=== PATIENT | male | born 1965 | race Caucasian/White ===

== ENCOUNTER 2023-08-22 12:12 | Emergency (ER) | payer BC, SELFPAY ==
[2023-08-22 12:15] VITALS: BP 205/86; PULSE 18; RESP 18; TEMP 37.2; O2SAT 96
[2023-08-22 14:37] VITALS: BP 167/85; PULSE 81; TEMP 36.9
--- NOTE | 2023-08-22 14:48 | ED.GENADUL_ITS ---
Discharge Plan Disposition Patient Disposition: Home Condition: Stable Discharge Details Clinical Impression: Abscess of great toe, right Primary Care Provider: Unknown,Unknown ED Provider: Thor Martins Home Meds and New Rx's Prescriptions: New cephalexin 500 mg capsule 500 mg PO QID Qty: 28 0RF Continued glipizide 10 mg tablet 10 mg PO DAILY lisinopril 20 mg tablet 20 mg PO DAILY Patient Comments: Take 1 tablet by mouth once a day for high blood pressure metformin 500 mg tablet extended release 24hr 1,000 mg PO DAILY aspirin 81 mg capsule 81 mg PO DAILY Januvia 100 mg tablet 100 mg PO DAILY Discharge Instructions Instructions: Abscess Follow-up (ED) Additional Instructions: Take full course of antibiotic as prescribed. Please contact your primary care physician to arrange follow-up. Please follow-up with podiatry next week. Call first thing on Friday. Return to the ER immediately for any worsening or new concerning symptoms. Referrals: [facility] [Provider Group] HPI General Mode of arrival: ambulatory . Date/Time Provider Initiated Documentation: 08/22/23 13:28 . Limitations to Documentation: no limitations . Information obtained by: patient . HPI Narrative: 58-year-old male with xob-iwrmjhy-jmqixpyfk diabetes here with right great toe infection. Patient notes he first noticed inflammation in the area about a week ago. Swelling and inflammation worsened. His daughter who is a nurse assisted him in draining purulent fluid from the area this morning. His daughter is concerned for extension deeper and potentially into bone. No associated fever. Swelling is significantly improved after drainage. Patient notes he has been compliant with his diabetic meds. Related Data Home Medications Medication Instructions Recorded Confirmed aspirin 81 mg capsule 81 mg PO DAILY 08/22/23 08/22/23 cephalexin 500 mg capsule 500 mg PO QID #28 caps 08/22/23 glipizide 10 mg tablet 10 mg PO DAILY 08/22/23 08/22/23 lisinopril 20 mg tablet 20 mg PO DAILY 08/22/23 08/22/23 metformin 500 mg tablet,extended 1,000 mg PO DAILY 08/22/23 08/22/23 release 24hr (osmotic) sitagliptin phosphate 100 mg 100 mg PO DAILY 08/22/23 08/22/23 tablet (Januvia) Previous Rx's Medication Instructions Recorded cephalexin 500 mg capsule 500 mg PO QID #28 caps 08/22/23 Allergies Allergy/AdvReac Type Severity Reaction Status Date / Time Penicillins Allergy Skin Rash Unverified 08/22/23 15:46 General Stated Complaint: Cellulitis CASSIDY: 3 Review of Systems Constitutional Constitutional: Denies fever(s) Integumentary/Breasts Skin/Breast: Reports as per HPI Exam Const General: cooperative and no acute distress Resp Auscultation: clear to auscultation bilaterally, no rales, no rhonchi and no wheezes Cardio Jugular venous pressure: no JVD Rate: regular rate and not tachycardic Rhythm: regular rhythm Skin Other: 2 x 3 cm drained abscess base of right great toe plantar surface, mild immediately surrounding erythema with no extension of this erythema proximally, no fluctuance, central area does seem depressed with overlying skin Extrem General: no edema Right lower extremity: foot (Base of right great toe inflammation as noted above, no swelling, 2+ DP) Course Vital Signs Vital signs: Vital Signs Temperature 37.2 C 08/22/23 12:15 Pulse 18 L 08/22/23 12:15 Respiratory Rate 18 08/22/23 12:15 Blood Pressure 205/86 H 08/22/23 12:15 Pulse Oximetry 96 08/22/23 12:15 Temperature 36.9 C 08/22/23 14:37 Temperature Source Temporal Artery Scan 08/22/23 14:37 Pulse 81 08/22/23 14:37 Respiratory Rate 18 08/22/23 12:15 Blood Pressure 167/85 H 08/22/23 14:37 Blood Pressure Position Sitting 08/22/23 12:15 Pulse Oximetry 96 08/22/23 12:15 Oxygen Delivery Method Room Air 08/22/23 14:37 Oxygen Flow Rate 0 08/22/23 14:37 Pain Level 0 08/22/23 14:37 Medical Decision Making 58-year-old male with history of nyc-xoylwdp-kobyywedq diabetes, here with abscess base of his right great toe that has been drained since this morning. Concern for localized abscess versus extension and osteomyelitis. Considered hypoglycemia. Fingerstick 135. X-ray of the toe was reviewed and interpreted by radiology:No obvious evidence of osteomyelitis. No fractures. I will initiate treatment with cephalexin. Plan for follow-up with podiatry. I will have him call on Friday. Quality:SDOH Health Related Social Needs: No Data to Display PFSH All Active Problems (Updated 08/22/23 @ 15:51 by Thor Martins MD) Abscess of great toe, right (Acute) Diabetes mellitus (Chronic) Social History Smoking/Tobacco Use Status: Former Tobacco Use Smoking risk assessment performed?: Yes Drug use: Never Do you feel safe at home: Yes Do you feel safe in your relationship?: Yes
[2023-08-22] MEDS: Cephalexin 500 MG CAP PO (14:59)
--- NOTE | 2023-08-22 15:37 | DI.RAD_ITS ---
Exam(s) XR TOE RT GREAT EXAM: XR TOE RT GREAT CLINICAL HISTORY: infection. TECHNIQUE: 2D digital imaging was performed. COMPARISON: No exams were available for comparison FINDINGS: 3 views No evidence of fracture nor dislocation. No diastasis of the Lisfranc joint. There is vascular calc ification in the distal foot noted. Great toe metatarsophalangeal joint appears unremarkable. There is no obvious skin ulcer identified. No obvious radiographic evidence of osteomyelitis. There is a small bone cyst noted in the proximal volar aspect of the distal phalanx. Doubtful for osteomyeliti s. There is no radiopaque foreign body. IMPRESSION: No obvious evidence of osteomyelitis. No fractures. DATA REPOSITORY: RADIATION DOSE DELIVERED:
--- NOTE | 2023-08-22 16:23 | NUR.NOTE ---
Referral faxed to podiatry for follow up to Diabetic Foot Infection/ Abscess early next week. Pt was given Keflex at one point.
== END 2023-08-22 16:09 | disposition home or self-care (01) ==
PROVIDERS: Emergency Provider Student in an Organized Health Care Education/Training Program
DX: L02.611 Cutaneous abscess of right foot (principal); E11.9 Type 2 diabetes mellitus without complications; Z79.84 Long term (current) use of oral hypoglycemic drugs; Z87.891 Personal history of nicotine dependence; Z79.82 Long term (current) use of aspirin
CPT/HCPCS: 82962; 99283; 73660

== ENCOUNTER → 2023-09-23 09:20 | Outpatient (CLI) | payer BC, SELFPAY ==
--- NOTE | 2023-09-23 09:40 | DI.RAD_ITS ---
Exam(s) XR FOOT RT COMPLETE EXAM: XR FOOT RT COMPLETE CLINICAL HISTORY: OM hallux IPJ?, osteomyelitis rt foot, M86.9. TECHNIQUE: 2D digital imaging was performed. COMPARISON: CR XR TOE RT GREAT from 08/22/2023 FINDINGS: Four views. No evidence of acute fracture or diastasis of the Lisfranc joint. Vascular calcifications again note d in the foot. No evidence of osteomyelitis. Great toe metatarsophalangeal joint appears unremarkab le. Moderate size inferior calcaneal spur is again noted. Additional great toe raise hallux view re veals no change in the previously described small bone cyst in the proximal plantar aspect of the dis carol ann phalanx. There is no evidence of osteomyelitis. IMPRESSION: Stable appearance. No acute osseous findings. Vascular calcification in the foot again noted. Ther e is no evidence of osteomyelitis. DATA REPOSITORY: RADIATION DOSE DELIVERED:
== END ==
PROVIDERS: PCP Family Medicine; Visit Provider Podiatrist
DX: M86.171 Other acute osteomyelitis, right ankle and foot (principal)
CPT/HCPCS: 73630

== ENCOUNTER 2023-09-23 09:30 | Outpatient (REF) | payer BC, SELFPAY | END 2023-09-23 09:31 | disposition home or self-care (01) | LOC: LBN 09:30 | PROVIDERS: PCP Family Medicine; Visit Provider Podiatrist | DX: L97.512 Non-pressure chronic ulcer of other part of right foot with fat layer exposed (principal); L97.518 Non-pressure chronic ulcer of other part of right foot with other specified severity; M86.68 Other chronic osteomyelitis, other site | CPT/HCPCS: 87077; 87070; 87075; 87186; 87205 ==

== ENCOUNTER → 2023-11-11 01:11 | Outpatient (CLI) | payer BC, SELFPAY ==
--- NOTE | 2023-11-11 07:57 | DI.RAD_ITS ---
Exam(s) XR FOOT RT COMPLETE EXAM: XR FOOT RT COMPLETE CLINICAL HISTORY: Osteomyelitis right foot,m86.9,om rt hallux. TECHNIQUE: 2D digital imaging was performed. COMPARISON: CR XR FOOT RT COMPLETE from 09/23/2023 FINDINGS: 3 views Vascular calcification again noted foot.. No evidence of osteomyelitis. No gas in the soft tissues. There is no evidence of fracture nor diastasis of the Lisfranc joint. Bone density normal. No signi ficant osseous lesions. No significant degenerative changes in the great toe metatarsophalangeal jayy nt nor within the other articulations of the foot. Moderate-large inferior calcaneal spur is again n oted as is a small in these 0 fight on the posterior calcaneus Achilles insertion site. Small access ory ossicle noted dorsal to the talonavicular joint. IMPRESSION: Stable appearance. No acute osseous findings nor significant change compared to images of 09/23/2023 . DATA REPOSITORY: RADIATION DOSE DELIVERED:
== END ==
PROVIDERS: PCP Family Medicine; Visit Provider Podiatrist
DX: M86.9 Osteomyelitis, unspecified (principal); M86.171 Other acute osteomyelitis, right ankle and foot
CPT/HCPCS: 73630

== ENCOUNTER → 2023-11-17 01:04 | Outpatient (CLI) | payer BC, SELFPAY ==
--- NOTE | 2023-11-17 07:15 | DI.RAD_ITS ---
Exam(s) XR CHEST 2V PA LATERAL EXAM: XR CHEST 2V PA LATERAL CLINICAL HISTORY: Pre op,Z01.818 TECHNIQUE: 2D digital imaging was performed. Two views. COMPARISON: No exams were available for comparison FINDINGS: HEART: Normal size. Aorta: Not dilated. PULMONARY VASCULATURE: Normal. MEDIASTINUM: Unremarkable. LUNGS: Clear. PLEURAL SPACE: No pleural effusion or pneumothorax. BONE:Degenerative changes with prominent right-sided osteophytes in the mid to lower thoracic spine. SOFT TISSUES: Unremarkable. IMPRESSION: No acute abnormality. DATA REPOSITORY: RADIATION DOSE DELIVERED:
[2023-11-17 08:47] LABS: Abs Immature Grans 0.02 10^3/uL (0.0-0.06); Absolute Basophil Count 0.06 10^3/uL (0.0-0.2); Absolute Eosinophil Count 0.29 10^3/uL (0.0-0.7); Absolute Monocyte Count 0.54 10^3/uL (0.1-0.8); Absolute Neutrophil Count 3.43 10^3/uL (1.2-6.7); Eosinophils % 4.8 %; HCT 41.8 % (40.0-50.0); HGB 14.6 g/dL (13.5-17.5); Immature Grans % 0.3 %; Lymphocytes % 28.1 %; MCH 30.3 pg (27.0-33.0); MCHC 34.9 % (32.0-36.0); MCV 87 fL (80-95); Monocytes % 8.9 %; Neutrophils % 56.9 %; RBC 4.82 10^6/uL (4.36-5.78); RDW 12.4 % (11.8-14.1); RDW-SD 39.4 fL; WBC 6.04 10^3/uL (4.4-10.8)
[2023-11-17 09:10] LABS: ALT 33 U/L (16-63); AST 17 U/L (15-37); Albumin 3.9 g/dL (3.4-5.0); Alkaline Phosphatase 71 U/L (46-116); Anion Gap 8.7 mmol/L (3-11); BUN 15 mg/dL (7-18); Bilirubin, Total 0.73 mg/dL (0.2-1.0); CO2 26.3 mmol/L (21.0-32.0); CREATININE 0.9 mg/dL (0.70-1.30); Calcium 10.5 mg/dL (8.5-10.1); Chloride 99 mmol/L (98-107); Estimated GFR 97.78 (mL/min/1.73m2); Glucose 216 mg/dL (74-106); Potassium 4.2 mmol/L (3.5-5.1); Sodium 134 mmol/L (136-145); Total Protein 8.1 g/dL (6.4-8.2)
[2023-11-17 09:12] LABS: Diff Comment PLT Morph Reviewed; RBC Morphology Normal
== END ==
PROVIDERS: PCP Family Medicine; Visit Provider Podiatrist
DX: L97.512 Non-pressure chronic ulcer of other part of right foot with fat layer exposed (principal); M25.571 Pain in right ankle and joints of right foot; M86.171 Other acute osteomyelitis, right ankle and foot; Z01.812 Encounter for preprocedural laboratory examination; Z01.818 Encounter for other preprocedural examination; I10 Essential (primary) hypertension; Z87.891 Personal history of nicotine dependence; E11.9 Type 2 diabetes mellitus without complications
CPT/HCPCS: 80053; 71046; 85025

== ENCOUNTER 2023-11-20 08:34 | Outpatient (CLI) | payer BC, SELFPAY ==
--- NOTE | 2023-11-20 08:30 | RT.EKG_ITS ---
APPROVED REPORT Exam: Resting ECG Reason for Exam: RBBB Patient Location: O HR:94 bpm ECG Measurements Heart Rate 94 AXIS ID 233 P 17 QRSd 152 QRS -19 QT 382 T 3 QTc 478 Conclusion Sinus rhythm...normal P axis, V-rate 50- 99 Prolonged ID interval...ID >205, V-rate 91-120 Right bundle branch block...QRSd>120, terminal axis(90,270)
== END 2023-11-20 08:35 | disposition home or self-care (01) ==
LOC: DI.CARD 08:35
PROVIDERS: PCP Family Medicine; Visit Provider Internal Medicine Cardiovascular Disease
DX: I45.10 Unspecified right bundle-branch block (principal); Z01.810 Encounter for preprocedural cardiovascular examination; L97.512 Non-pressure chronic ulcer of other part of right foot with fat layer exposed; I10 Essential (primary) hypertension
CPT/HCPCS: 93010

== ENCOUNTER 2023-11-24 06:59 | Day surgery (SDC) | payer BC, SELFPAY ==
[2023-11-24] VITALS (28 sets, daily range): BP systolic 72–159; BP diastolic 44–86; PULSE 56–83; RESP 12–18; TEMP 35.9–36.9; O2SAT 97–100; BMI 25.6
[2023-11-24] MEDS: CLINDAMYCIN 300 MG/50 ML BAG 100 MG IVPB (07:49)
[2023-11-24] MEDS: Lactated Ringers 1,000 ML 30 ML IV (07:49)
--- NOTE | 2023-11-24 08:30 | ANES.PREOP_ITS ---
General Info Date of Service Date Performed: 11/24/23 Height: 5 ft 8 in Weight: 76.5 kg Body Mass Index (BMI): 25.6 Surgical Procedure: Operation Date: 11/24/23 08:40 Proposed Procedure Side Surgeon p Plantar Exostectomy Distal Phalanx Greater Toe, Possible Proximal Phalanx Greater Toe Right Mala WebsterHA wu Pre-Op Diagnosis Post-Op Diagnosis (2) Osteomyelitis of right foot: (3) Non-healing ulcer of right foot: (4) Chronic ulcer of right foot: Meds Allergies and Home Medications Allergies Allergy/AdvReac Type Severity Reaction Status Date / Time Penicillins Allergy Skin Rash Verified 11/24/23 07:18 tadalafil (From Cialis) AdvReac Intermediate Headache Verified 11/24/23 07:18 Home Medication ?Medication ?Instructions ?Recorded aspirin 81 mg capsule 81 mg PO DAILY 08/22/23 lisinopril 20 mg tablet 20 mg PO DAILY 08/22/23 metformin 500 mg tablet,extended 1,000 mg PO DAILY 08/22/23 release 24hr (osmotic) sitagliptin phosphate 100 mg 100 mg PO DAILY 08/22/23 tablet (Januvia) collagenase clostridium histo. 250 1 applic topical DAILY #30 grams 09/23/23 unit/gram topical ointment (Santyl) glipizide 10 mg tablet 10 mg PO BID 11/19/23 oxycodone-acetaminophen 7.5 mg-325 1 tab PO Q8H 3 days #9 tabs 11/24/23 mg tablet (Percocet) Current Visit Medications: Current Medications Generic Name Dose Route Start Last Admin Trade Name Surekha PRN Reason Stop Dose Admin Ringer's Solution 1,000 mls @ 30 mls/hr 11/24/23 06:00 11/24/23 07:49 IV 12/21/23 23:59 30 mls/hr INFUSION CLAUDETTE Administration Clindamycin Phosphate/Dextrose 300 mg in 50 mls @ 100 mls/hr 11/24/23 06:00 11/24/23 07:49 Cleocin In D5w IVPB 11/24/23 23:59 100 mls/hr PREOP CLAUDETTE Administration IV Miscellaneous Supplies 1 each 11/24/23 06:00 Iv Access IV 12/21/23 23:59 DIRECTED CLAUDETTE Sodium Chloride 0 ml 08/05/24 06:00 Normal Saline Flush 10 Ml Syr IV 12/21/23 23:59 PRN PRN Sodium Chloride 0 ml 11/24/23 06:00 Normal Saline 10 Ml Vial IJ 12/21/23 23:59 DIRECTED PRN Sterile Water 0 ml 11/24/23 06:00 Water,Injection,Sterile 10 Ml Vial IJ 12/21/23 23:59 DIRECTED PRN PFSH Active Problems Active Problems: Problem Status Onset Code Preoperative cardiovascular examination Acute Z01.810 HLD (hyperlipidemia) Acute E78.5 HTN (hypertension) with goal to be determined Acute I10 Right bundle branch block (RBBB) Acute I45.10 Pre-op testing Acute Z01.818 Neuropathic ulcer of right foot with fat layer exposed Acute L97.512 Chronic ulcer of right foot Acute L97.519 Non-healing ulcer of right foot Acute L97.519 Osteomyelitis of right foot Acute M86.9 Type 2 diabetes mellitus with peripheral neuropathy Acute E11.42 Ulcer of left foot, limited to breakdown of skin Acute L97.521 Hypertension Chronic I10 Diabetes mellitus Chronic E11.9 Medical History Medical History (Updated 11/24/23 @ 08:33 by Mala Short DPM) White coat syndrome with hypertension Tobacco Smoking/Tobacco Use Status: Former Tobacco Use Alcohol Alcohol Intake: current Alcohol intake frequency: a few times a week Alcohol type: beer and wine Substance Use Substance use: Never Substance use type: does not use Vital Signs and Lab Results Vital Signs Most Recent Vital Signs in EMR: Most Recent Vital Signs Temp Pulse Resp BP Pulse Ox 36.9 C 82 18 158/83 H 99 11/24/23 07:19 11/24/23 07:19 11/24/23 07:19 11/24/23 07:19 11/24/23 07:19 Point of Care Results Point of Care Results: Finger Stick Blood Glucose 253 11/24/23 07:29 Lab Results Blood Type / Crossmatch: No Data to Display Complete Blood Count: White Blood Count 6.04 10^3/uL (4.4-10.8) 11/17/23 07:50 Red Blood Count 4.82 10^6/uL (4.36-5.78) 11/17/23 07:50 Hemoglobin 14.6 g/dL (13.5-17.5) 11/17/23 07:50 Hematocrit 41.8 % (40.0-50.0) 11/17/23 07:50 Platelet Count 10^3/uL (130-400) 11/17/23 07:50 Complete Metabolic Panel: Sodium 134 mmol/L (136-145) L 11/17/23 07:50 Potassium 4.2 mmol/L (3.5-5.1) 11/17/23 07:50 Chloride 99 mmol/L (98-107) 11/17/23 07:50 Carbon Dioxide 26.3 mmol/L (21.0-32.0) 11/17/23 07:50 BUN 15 mg/dL (7-18) 11/17/23 07:50 Creatinine 0.9 mg/dL (0.70-1.30) 11/17/23 07:50 Est GFR (CKD-EPI 2020) 97.78 (mL/min/1.73m2) 11/17/23 07:50 Calcium 10.5 mg/dL (8.5-10.1) H 11/17/23 07:50 Albumin 3.9 g/dL (3.4-5.0) 11/17/23 07:50 Glucose 216 mg/dL (74-106) H 11/17/23 07:50 Liver Function Panel: Alanine Aminotransferase (ALT/SGPT) 33 U/L (16-63) 11/17/23 07: 50 Aspartate Amino Transf (AST/SGOT) 17 U/L (15-37) 11/17/23 07:50 Coagulation Panel: No Data to Display Cardiac Panel: No Data to Display Arterial Blood Gas: No Data to Display Venous Blood Gas: No Data to Display Pancreas Panel: No Data to Display Thyroid Panel: No Data to Display Infectious Disease: No Data to Display Blood Cultures: No Data to Display Toxicology Panel: No Data to Display Imaging and Studies Imaging and Studies Study information below may be from another EMR and interpreted by another provider. Please see original notes in EMR for more complete details. EKG Summary: 11/20/23: Exam: Resting ECG Reason for Exam: RBBB Patient Location: O HR:94 bpm ECG Measurements Heart Rate 94 AXIS AR 233 P 17 QRSd 152 QRS -19 QT 382 T3 QTc 478 Conclusion Sinus rhythm...normal P axis, V-rate 50- 99 Prolonged AR interval...AR >205, V-rate 91-120 Right bundle branch block...QRSd>120, terminal axis(90,270) Anesthesia Assessment and Plan Anesthesia History Personal History: No History of Anesthesia Complications Family History: No Family History of Anesthesia Complications Exercise Tolerance Exercise Tolerance: Metabolic Equivalents>4 Pertinent Negatives Pertinent Negatives: No Major Cardiovascular Symptoms or Complaints and No Major Pulmonary Symptoms or Complaints Cardiac & Pulmonary Exam Cardiac Exam: Normal S1/S2 Heart Sounds Pulmonary Exam: Clear Bilateral Breath Sounds Implantable Cardiac Device Does patient have a Pacemaker or an ICD?: No Airway Exam Known Difficult Airway: No Mallampati Class: 2 Mouth Opening: Normal (> 3cm) Thyromental Distance: Greater than 3 cm Neck Range of Motion: Full ROM Neck Circumference: Normal Teeth Condition: Normal Dentition ASA Classification ASA Score: ASA 3 Emergency Case?: No NPO Status NPO Status: NPO Clears >2 hours, Solids >8 hours Anesthesia Plan Resuscitation Status: Full Code Anesthesia Technique: General Anesthesia Airway Planned: Endotracheal Tube Monitors Used: Standard Monitors Preoperative Comments:: Discussed BGL with Dr. Short, plan to proceed. Elective GA/RSI due to GERD symptoms.
[2023-11-24] MEDS: Lidocaine 1% Pres-Free 30 ML VIAL (09:29)
[2023-11-24] MEDS: ePHEDrine 25 MG/5 ML Syringe IVP (10:22)
--- NOTE | 2023-11-24 10:22 | W.PM.DSUDISC ---
Date of service: 11/24/23 Time of Service: 10:22 Discharge Plan Disposition Patient Disposition: Home Condition: Stable Discharge Details Attending Provider: Mala Short Primary Care Provider: Mallika Hines Home Meds and New Rx's Prescriptions: No Action glipizide 10 mg tablet 10 mg PO BID Santyl 250 unit/gram ointment 1 applic topical DAILY Qty: 30 3RF Rx Instructions: Ulcer measures 1cm x 1cm x 0.5cm oxycodone-acetaminophen [Percocet] 7.5-325 mg tablet 1 tab PO Q8H MDD 3 tabs a day 3 Days Qty: 9 0RF lisinopril 20 mg tablet 20 mg PO DAILY Patient Comments: Take 1 tablet by mouth once a day for high blood pressure metformin 500 mg tablet extended release 24hr 1,000 mg PO DAILY aspirin 81 mg capsule 81 mg PO DAILY Januvia 100 mg tablet 100 mg PO DAILY Discharge Instructions Stand Alone Forms: Podiatry Instructions-DSU Activity:: Elevate Remove Dressings/Wound Care:: Do Not Remove Shower/Bathe:: Cover Diet:: High protein Discharge Orders Discharge Orders: Discharge Order (Routine); Ordered 11/24/23 Ordered By: Mala Short DS: Diagnosis Discharge Diagnosis (1) Chronic ulcer of right foot: Status: Acute (2) Neuropathic ulcer of right foot with fat layer exposed: Status: Acute (3) Type 2 diabetes mellitus with peripheral neuropathy: Status: Acute
--- NOTE | 2023-11-24 10:27 | ROE_ITS ---
Date of service: 11/24/23 Time of Service: 10:27 Operative Note Operative Note DATE OF PROCEDURE: 11/24/23 PRE-OP DIAGNOSIS: Non healing ulcer right hallux POST-OP DIAGNOSIS: same PROCEDURE: Arthroplasty, right hallux with plantar exostectomy base of the proximal phalanx right hallux SURGEON: Mala Short ANESTHESIA TYPE: Local By Surgeon (10 mL lidocaine plain 1%) Refer to Anesthesia Record ESTIMATED BLOOD LOSS: 0 PATHOLOGY: none sent TOURNIQUET TIME: 40 COMPLICATIONS: Other (Extensor hallucis longus tendon was partially violated- repaired using 3-0 Vicryl) Patient's condition: stable Indications: This is a diabetic male patient with nonhealing ulcer to the plantar aspect of the left right hallux. I discussed the benefits of surgical offloading of the ulceration to allow the ulcer to heal. Patient consented to the procedure. I discussed the benefits of the surgery as well as possible complications including but not limited to pain, nerve pain, need for further surgery or amputation, failure of surgery. No contraindications noted to procedure at this time. Procedure Description: Patient was identified in preop holding. Site was marked. Patient was then brought to the operating room placed in supine position. Anesthesia team. After induction of general anesthesia, local hallux block was performed using parallel 1% lidocaine plain and a right ankle tourniquet was applied. The right lower extremity was then scrubbed prepped and draped in the usual aseptic manner. The tourniquet was then inflated to 50 mmHg. Next, using a sterile skin marker, a lazy S incision was planned directly over the hallux interphalangeal joint. Skin incision was then made using a sterile #15 blade. Incision was then deepened through the skin and subcutaneous tissue. A capsular incision was made while taking care not to violate the extensor hallucis longus tendon the tendon was then retracted laterally thus exposing the joint. Next, a bur was used to smooth the plantar medial stump of the base of the right hallux. Next, using a saw the head of the proximal phalanx was then resected in toto and passed from the operative field. The incision site was then flushed with copious amounts of sterile saline. At this time it was noted that the extensor hallucis longus tendon was partially compromised. The extensor hallucis longus tendon was then reapproximated using 3-0 Vicryl. The Incision Was Then Reapproximated Using 3-0 Vicryl. The Skin Was Then Closed with 4-0 Vicryl and 4 -0 Nylon. The Tourniquet Was Then Deflated. Dressings Were Then Applied with Xeroform Gauze, 4 X 4, Kerlix and an Jose Wrap. The Patient Tolerated the Procedure and Anesthesia Well with vital signs stable and vascular status intact to the right lower extremity. Patient was transferred to PACU for further monitoring. Patient is to then keep the dressings clean dry and intact. He has an appointment for follow-up in office on . Patient was seen in postoperative holding with his daughter present. I discussed the complications as above. Patient was advised that if there is instability with the hallux or recurrent ulcerations I would likely recommend a fusion of the hallux IPJ. Discussed significant glycemic control. There is risk for limb loss
--- NOTE | 2023-11-24 11:23 | W.ANESPOSTOP ---
Postoperative Evaluation Date, Time and Location Date Performed: 11/24/23 Time Performed: 11:23 Patient Location: Day Surgery Unit Vital Signs Most Recent Imported Vital Signs: Most Recent Vital Signs Temp Pulse Resp BP Pulse Ox 35.9 C L 78 18 133/77 98 11/24/23 11:17 11/24/23 11:17 11/24/23 11:17 11/24/23 11:17 11/24/23 11:17 Pain Score Most Recent Pain Score: Most Recent Pain Score Pain Level 0 11/24/23 11:17 Assessment Mental Status: Awake (Alert & Oriented to Patient Baseline) Airway and Respiratory Function: Patent airway with normal (patient baseline) respiratory exam Cardiovascular Function: Hemodynamically Stable Hydration Status: Adequately Hydrated Nausea & Vomiting: No Nausea or Vomiting Pain: Pt. Denies Any Pain Peripheral Nerve Block: Patient did not receive a nerve block
== END 2023-11-24 12:24 | disposition home or self-care (01) ==
PROVIDERS: PCP Nurse Practitioner Family; Visit Provider Podiatrist
PROC: (CPT 28288; principal; 2023-11-24 08:30)
DX: E11.69 Type 2 diabetes mellitus with other specified complication; E11.42 Type 2 diabetes mellitus with diabetic polyneuropathy; L97.512 Non-pressure chronic ulcer of other part of right foot with fat layer exposed; M86.171 Other acute osteomyelitis, right ankle and foot; Z79.84 Long term (current) use of oral hypoglycemic drugs
CPT/HCPCS: 28160; 00123; J0736; J1805; J1885; J2001; J2250; J2371; J2405; J2704

== ENCOUNTER 2023-11-27 13:42 | Outpatient (REF) | payer BC, SELFPAY | END 2023-11-27 13:43 | disposition home or self-care (01) | LOC: LBN 13:42 | PROVIDERS: PCP Nurse Practitioner Family; Visit Provider Podiatrist | DX: T81.40XA Infection following a procedure, unspecified, initial encounter; Z98.890 Other specified postprocedural states; L03.90 Cellulitis, unspecified; Z09 Encounter for follow-up examination after completed treatment for conditions other than malignant neoplasm; M86.9 Osteomyelitis, unspecified; L97.519 Non-pressure chronic ulcer of other part of right foot with unspecified severity; L97.512 Non-pressure chronic ulcer of other part of right foot with fat layer exposed; E11.42 Type 2 diabetes mellitus with diabetic polyneuropathy; L97.521 Non-pressure chronic ulcer of other part of left foot limited to breakdown of skin | CPT/HCPCS: 87077; 87070; 87075; 87186; 87205 ==

== ENCOUNTER 2023-11-27 14:00 | Outpatient (CLI) | payer BC, SELFPAY ==
[2023-11-27 14:07] LABS: Abs Immature Grans 0.04 10^3/uL (0.0-0.06); Absolute Basophil Count 0.04 10^3/uL (0.0-0.2); Absolute Eosinophil Count 0.23 10^3/uL (0.0-0.7); Absolute Lymphocyte Count 1.56 10^3/uL (1.2-3.4); Absolute Monocyte Count 0.83 10^3/uL (0.1-0.8); Absolute Neutrophil Count 6.55 10^3/uL (1.2-6.7); Basophils % 0.4 %; ESR 35 mm/hr (0-20); Eosinophils % 2.5 %; HCT 39.6 % (40.0-50.0); HGB 13.5 g/dL (13.5-17.5); Immature Grans % 0.4 %; Lymphocytes % 16.9 %; MCH 30.3 pg (27.0-33.0); MCHC 34.1 % (32.0-36.0); MCV 89 fL (80-95); Neutrophils % 70.8 %; Platelet Count 219 10^3/uL (130-400); RBC 4.45 10^6/uL (4.36-5.78); RDW 12.4 % (11.8-14.1); RDW-SD 40.6 fL; WBC 9.25 10^3/uL (4.4-10.8)
[2023-11-27 14:15] LABS: C-Reactive Protein 6.57 mg/dL (<or=0.5)
== END 2023-11-27 14:01 | disposition home or self-care (01) ==
LOC: LBO 14:00
PROVIDERS: PCP Nurse Practitioner Family; Visit Provider Podiatrist
DX: L03.90 Cellulitis, unspecified (principal); Z98.890 Other specified postprocedural states; Z09 Encounter for follow-up examination after completed treatment for conditions other than malignant neoplasm; M86.9 Osteomyelitis, unspecified; L97.519 Non-pressure chronic ulcer of other part of right foot with unspecified severity; L97.512 Non-pressure chronic ulcer of other part of right foot with fat layer exposed; L97.521 Non-pressure chronic ulcer of other part of left foot limited to breakdown of skin; E11.42 Type 2 diabetes mellitus with diabetic polyneuropathy
CPT/HCPCS: 36415; 85652; 85025; 86140

== ENCOUNTER 2023-12-10 03:00 | Outpatient (CLI) | payer BC, SELFPAY ==
[2023-12-10 14:57] LABS: Abs Immature Grans 0.02 10^3/uL (0.0-0.06); Absolute Basophil Count 0.06 10^3/uL (0.0-0.2); Absolute Eosinophil Count 0.18 10^3/uL (0.0-0.7); Absolute Lymphocyte Count 1.45 10^3/uL (1.2-3.4); Absolute Monocyte Count 0.67 10^3/uL (0.1-0.8); Absolute Neutrophil Count 4.79 10^3/uL (1.2-6.7); Basophils % 0.8 %; Eosinophils % 2.5 %; HCT 39.8 % (40.0-50.0); HGB 13.6 g/dL (13.5-17.5); Immature Grans % 0.3 %; Lymphocytes % 20.2 %; MCH 29.4 pg (27.0-33.0); MCHC 34.2 % (32.0-36.0); MCV 86 fL (80-95); MPV 8.5 fL (8.0-11.0); Monocytes % 9.3 %; Neutrophils % 66.9 %; Platelet Count 299 10^3/uL (130-400); RBC 4.63 10^6/uL (4.36-5.78); RDW 11.9 % (11.8-14.1); RDW-SD 37.7 fL; WBC 7.17 10^3/uL (4.4-10.8)
== END 2023-12-10 03:01 | disposition home or self-care (01) ==
LOC: LBO 03:06
PROVIDERS: PCP Nurse Practitioner Family; Visit Provider Podiatrist
DX: L03.90 Cellulitis, unspecified (principal)
CPT/HCPCS: 36415; 85025

== ENCOUNTER 2023-12-11 08:47 | Outpatient (REF) | payer BC, SELFPAY | END 2023-12-11 08:48 | disposition home or self-care (01) | LOC: LBN 08:47 | PROVIDERS: PCP Nurse Practitioner Family; Visit Provider Podiatrist | DX: L03.90 Cellulitis, unspecified (principal) | CPT/HCPCS: 87070; 87075; 87205 ==

== ENCOUNTER 2023-12-16 11:29 | Day surgery (SDC) | payer BC, SELFPAY ==
[2023-12-16] VITALS (7 sets, daily range): BP systolic 119–151; BP diastolic 68–95; PULSE 60–74; RESP 13–16; TEMP 36–36.4; O2SAT 97–99; BMI 25.6
--- NOTE | 2023-12-16 10:06 | ANES.PREOP_ITS ---
General Info Date of Service Date Performed: 12/16/23 Height: 5 ft 8 in Weight: 76.5 kg Body Mass Index (BMI): 25.6 Surgical Procedure: Operation Date: 12/16/23 13:10 Proposed Procedure Side Surgeon p Incision and Drainage w/debridement right foot Right Mala Short DPM Meds Allergies and Home Medications Allergies Allergy/AdvReac Type Severity Reaction Status Date / Time Penicillins Allergy Skin Rash Verified 12/16/23 11:44 tadalafil (From Cialis) AdvReac Intermediate Headache Verified 12/16/23 11:44 Home Medication ?Medication ?Instructions ?Recorded aspirin 81 mg capsule 81 mg PO DAILY 08/22/23 lisinopril 20 mg tablet 20 mg PO DAILY 08/22/23 metformin 500 mg tablet,extended 1,000 mg PO DAILY 08/22/23 release 24hr (osmotic) sitagliptin phosphate 100 mg 100 mg PO DAILY 08/22/23 tablet (Januvia) collagenase clostridium histo. 250 1 applic topical DAILY #30 grams 09/23/23 unit/gram topical ointment (Santyl) glipizide 10 mg tablet 10 mg PO BID 11/19/23 ciprofloxacin HCl 500 mg tablet 500 mg PO BID 2 weeks #28 tabs 12/09/23 Current Visit Medications: Current Medications Generic Name Dose Route Start Last Admin Trade Name Freq PRN Reason Stop Dose Admin Ringer's Solution 1,000 mls @ 30 mls/hr 12/16/23 06:00 IV 12/16/23 23:59 INFUSION CLAUDETTE Ceftriaxone Sodium/Dextrose 2 gm in 50 mls @ 100 mls/hr 12/16/23 13:00 Rocephin IVPB 12/16/23 23:59 Q24H CLAUDETTE IV Miscellaneous Supplies 1 each 12/16/23 06:00 Iv Access IV 12/16/23 23:59 DIRECTED CLAUDETTE Sodium Chloride 0 ml 12/16/23 06:00 Normal Saline Flush 10 Ml Syr IV 12/16/23 23:59 PRN PRN Sodium Chloride 0 ml 12/16/23 06:00 Normal Saline 10 Ml Vial IJ 12/16/23 23:59 DIRECTED PRN Sterile Water 0 ml 12/16/23 06:00 Water,Injection,Sterile 10 Ml Vial IJ 12/16/23 23:59 DIRECTED PRN PFSH Active Problems Active Problems: Problem Status Onset Code Cellulitis Acute L03.90 Post-op pain Acute G89.18 Preoperative cardiovascular examination Acute Z01.810 HLD (hyperlipidemia) Acute E78.5 HTN (hypertension) with goal to be determined Acute I10 Right bundle branch block (RBBB) Acute I45.10 Pre-op testing Acute Z01.818 Neuropathic ulcer of right foot with fat layer exposed Acute L97.512 Chronic ulcer of right foot Acute L97.519 Non-healing ulcer of right foot Acute L97.519 Osteomyelitis of right foot Acute M86.9 Type 2 diabetes mellitus with peripheral neuropathy Acute E11.42 Ulcer of left foot, limited to breakdown of skin Acute L97.521 Hypertension Chronic I10 Diabetes mellitus Chronic E11.9 Medical History Medical History White coat syndrome with hypertension Tobacco Smoking/Tobacco Use Status: Former Tobacco Use Alcohol Alcohol Intake: current Alcohol intake frequency: a few times a month Alcohol type: beer and wine Substance Use Substance use: Never Substance use type: does not use Vital Signs and Lab Results Lab Results Blood Type / Crossmatch: No Data to Display Complete Blood Count: White Blood Count 7.17 10^3/uL (4.4-10.8) 12/10/23 14:35 Red Blood Count 4.63 10^6/uL (4.36-5.78) 12/10/23 14:35 Hemoglobin 13.6 g/dL (13.5-17.5) 12/10/23 14:35 Hematocrit 39.8 % (40.0-50.0) L 12/10/23 14:35 Platelet Count 299 10^3/uL (130-400) 12/10/23 14:35 Complete Metabolic Panel: Sodium 134 mmol/L (136-145) L 11/17/23 07:50 Potassium 4.2 mmol/L (3.5-5.1) 11/17/23 07:50 Chloride 99 mmol/L (98-107) 11/17/23 07:50 Carbon Dioxide 26.3 mmol/L (21.0-32.0) 11/17/23 07:50 BUN 15 mg/dL (7-18) 11/17/23 07:50 Creatinine 0.9 mg/dL (0.70-1.30) 11/17/23 07:50 Est GFR (CKD-EPI 2020) 97.78 (mL/min/1.73m2) 11/17/23 07:50 Calcium 10.5 mg/dL (8.5-10.1) H 11/17/23 07:50 Albumin 3.9 g/dL (3.4-5.0) 11/17/23 07:50 Glucose 216 mg/dL (74-106) H 11/17/23 07:50 C-Reactive Protein 6.57 mg/dL (<or=0.5) H 11/27/23 13:53 Liver Function Panel: Alanine Aminotransferase (ALT/SGPT) 33 U/L (16-63) 11/17/23 07: 50 Aspartate Amino Transf (AST/SGOT) 17 U/L (15-37) 11/17/23 07:50 Coagulation Panel: No Data to Display Cardiac Panel: No Data to Display Arterial Blood Gas: No Data to Display Venous Blood Gas: No Data to Display Pancreas Panel: No Data to Display Thyroid Panel: No Data to Display Infectious Disease: No Data to Display Blood Cultures: No Data to Display Toxicology Panel: No Data to Display Imaging and Studies Imaging and Studies Study information below may be from another EMR and interpreted by another provider. Please see original notes in EMR for more complete details. EKG Summary: 11/20/23: Exam: Resting ECG Reason for Exam: RBBB Patient Location: O HR:94 bpm ECG Measurements Heart Rate 94 AXIS NE 233 P 17 QRSd 152 QRS -19 QT 382 T3 QTc 478 Conclusion Sinus rhythm...normal P axis, V-rate 50- 99 Prolonged NE interval...NE >205, V-rate 91-120 Right bundle branch block...QRSd>120, terminal axis(90,270) Anesthesia Assessment and Plan Anesthesia History Personal History: No History of Anesthesia Complications Family History: No Family History of Anesthesia Complications Exercise Tolerance Exercise Tolerance: Metabolic Equivalents>4 Pertinent Negatives Pertinent Negatives: No Major Cardiovascular Symptoms or Complaints and No Major Pulmonary Symptoms or Complaints Cardiac & Pulmonary Exam Cardiac Exam: Normal S1/S2 Heart Sounds Pulmonary Exam: Clear Bilateral Breath Sounds Implantable Cardiac Device Does patient have a Pacemaker or an ICD?: No Airway Exam Known Difficult Airway: No Mallampati Class: 2 Mouth Opening: Normal (> 3cm) Thyromental Distance: Greater than 3 cm Neck Range of Motion: Full ROM Neck Circumference: Normal Teeth Condition: Normal Dentition ASA Classification ASA Score: ASA 3 Emergency Case?: No NPO Status NPO Status: NPO Clears >2 hours, Solids >8 hours Anesthesia Plan Resuscitation Status: Full Code Anesthesia Technique: General Anesthesia Airway Planned: Endotracheal Tube Monitors Used: Standard Monitors Preoperative Comments:: Elective GA/RSI due to GERD symptoms.
[2023-12-16] MEDS: Lactated Ringers 1,000 ML 30 ML IV (12:00)
[2023-12-16] MEDS: cefTRIAXone 2 GM/50 ML BAG IVPB (12:23)
[2023-12-16] MEDS: Lidocaine 1% Pres-Free 30 ML VIAL (12:56)
--- NOTE | 2023-12-16 13:15 | W.PM.OP ---
Date of service: 12/16/23 Time of Service: 12:15 Operative Note Operative Note DATE OF PROCEDURE: 12/16/23 PRE-OP DIAGNOSIS: Wound dehiscence, right foot POST-OP DIAGNOSIS: same PROCEDURE: Incision and debridement and closure, right foot SURGEON: Mala Short ANESTHESIA TYPE: Local By Surgeon (10 mL 1% lidocaine plain) Refer to Anesthesia Record ESTIMATED BLOOD LOSS: 2 PATHOLOGY: other (Wound cultures) COMPLICATIONS: None Patient was transported to: same day Patient's condition: stable Indications: This is a 58-year-old male patient with wound dehiscence of the right hallux. Patient also had an infection which has been treated with IV ceftriaxone. Patient will be on antibiotics for 6 weeks for exposed bone. I discussed the procedure in detail with the patient including risks, benefits and possible complications including but not limited to pain, nerve pain, wound dehiscence, delayed healing, nonhealing, need for further surgery or amputation, difficulty ambulating, DVT, PE, stroke, MA or with anesthesia. Patient consented to the procedure. No contraindications noted to the procedure at this time. Findings: Soft tissue necrosis and exposed bone, right hallux Procedure Description: Patient was identified in preop holding. Consent form was signed reviewed and in chart. Patient was brought to the operating room placed on the operating table in supine position with the anesthesia team. The site was marked. After induction of general anesthesia, right hallux block was performed with 10 mL 1% lidocaine plain. The right lower extremity was then scrubbed, prepped and draped in the usual aseptic manner. Timeout was carried out. Attention was directed to the dorsal aspect of the right hallux where a dehisced wound was noted dorsally. Using a Versajet at #10 setting all necrotic nonviable tissue including subcutaneous tissue was debrided today. The plantar hallux ulceration was debrided as well using a Versajet as well as a sterile #15 blade. The sites were then flushed with copious amounts of sterile saline. The wound edge was noted to be able to be reapproximated and decision was made to close the wound. The site was then reapproximated using 2-0 Prolene some tension is noted medially. Dressings were then applied with Xeroform, 4 x 4, Kerlix and an Jose wrap. Patient tolerated the procedure and anesthesia well with vital signs stable and vascular status intact to the right foot. Patient was transferred to same-day for further monitoring. He will be discharged home when stable. Patient will continue to to be on antibiotics for at least 6 weeks. I recommend consultation with infectious disease. This may progress to a hallux amputation if there is further delayed healing. Patient will need tight glycemic control. Will get hemoglobin A1c levels.
--- NOTE | 2023-12-16 13:36 | W.ANESPOSTOP ---
Postoperative Evaluation Date, Time and Location Date Performed: 12/16/23 Time Performed: 13:37 Patient Location: PACU Vital Signs Most Recent Imported Vital Signs: Most Recent Vital Signs Temp Pulse Resp BP Pulse Ox 36.4 C L 67 16 134/74 97 12/16/23 13:20 12/16/23 13:36 12/16/23 13:36 12/16/23 13:36 12/16/23 13:36 Pain Score Most Recent Pain Score: Most Recent Pain Score Pain Level 0 12/16/23 13:36 Assessment Mental Status: Awake (Alert & Oriented to Patient Baseline) Airway and Respiratory Function: Patent airway with normal (patient baseline) respiratory exam Cardiovascular Function: Hemodynamically Stable Hydration Status: Adequately Hydrated Nausea & Vomiting: No Nausea or Vomiting Pain: Pt. Denies Any Pain Peripheral Nerve Block: Patient did not receive a nerve block
[2023-12-16 14:07] LABS: Hemoglobin A1C 8.1 % (<5.7)
== END 2023-12-16 14:39 | disposition home or self-care (01) ==
LOC: SUR 11:29
PROVIDERS: PCP Nurse Practitioner Family; Visit Provider Podiatrist
PROC: (CPT 12020; principal; 2023-12-16 13:00)
DX: T81.32XA Disruption of internal operation (surgical) wound, not elsewhere classified, initial encounter (principal); E11.621 Type 2 diabetes mellitus with foot ulcer; L97.516 Non-pressure chronic ulcer of other part of right foot with bone involvement without evidence of necrosis; E11.42 Type 2 diabetes mellitus with diabetic polyneuropathy; Z79.84 Long term (current) use of oral hypoglycemic drugs; L03.031 Cellulitis of right toe
CPT/HCPCS: 12020; 11042; 00123; 36415; 83036; 87070; 87075; 87205; J0696; J2001; J2371; J2704

== ENCOUNTER 2023-12-21 00:18 | Outpatient (RCR) | payer BC, SELFPAY ==
[2023-12-15] MEDS: cefTRIAXone 2 GM/50 ML BAG IVPB (13:54)
[2023-12-15] MEDS: Normal Saline Flush 10 ML SYR IVP (13:55)
[2023-12-17] MEDS: Normal Saline Flush 10 ML SYR IVP (14:03)
[2023-12-17] MEDS: cefTRIAXone 2 GM/50 ML BAG IVPB (14:03)
[2023-12-18] MEDS: cefTRIAXone 2 GM/50 ML BAG IVPB (11:57)
[2023-12-18] MEDS: Normal Saline Flush 10 ML SYR IVP (11:57)
[2023-12-19] MEDS: cefTRIAXone 2 GM/50 ML BAG IVPB (14:00)
[2023-12-19] MEDS: Normal Saline Flush 10 ML SYR IVP (14:01)
[2023-12-19 14:45] LABS: HCT 42.9 % (40.0-50.0); HGB 14.7 g/dL (13.5-17.5); MCH 29.5 pg (27.0-33.0); MCHC 34.3 % (32.0-36.0); MCV 86 fL (80-95); MPV 8.9 fL (8.0-11.0); Platelet Count 260 10^3/uL (130-400); RBC 4.98 10^6/uL (4.36-5.78); RDW 11.9 % (11.8-14.1); RDW-SD 37.2 fL; WBC 6.92 10^3/uL (4.4-10.8)
[2023-12-19 14:51] LABS: ESR 25 mm/hr (0-20)
[2023-12-19 15:02] LABS: ALT 38 U/L (16-63); AST 26 U/L (15-37); Albumin 3.9 g/dL (3.4-5.0); Alkaline Phosphatase 68 U/L (46-116); Anion Gap 12.2 mmol/L (3-11); BUN 13 mg/dL (7-18); Bilirubin, Total 0.38 mg/dL (0.2-1.0); CO2 24.8 mmol/L (21.0-32.0); Calcium 9.8 mg/dL (8.5-10.1); Chloride 98 mmol/L (98-107); Estimated GFR 86.16 (mL/min/1.73m2); Glucose 118 mg/dL (74-106); Potassium 3.7 mmol/L (3.5-5.1); Sodium 135 mmol/L (136-145); Total Protein 8.2 g/dL (6.4-8.2)
[2023-12-19 15:03] LABS: C-Reactive Protein < 0.50 mg/dL (<or=0.5)
[2023-12-20] MEDS: cefTRIAXone 2 GM/50 ML BAG IVPB (14:07)
[2023-12-21] MEDS: cefTRIAXone 2 GM/50 ML BAG IVPB (14:00)
--- NOTE | 2023-12-21 14:08 | NUR.NOTE ---
pt arrived at 1350, a 20 guage iv was placed in the right AC pt tolerated well pblood return affirmed. 2 grams of ceftriaxone hung per written order and verified by second RN.
--- NOTE | 2023-12-21 14:28 | NUR.NOTE ---
IV infusion completed and IV discontinued at 1429. pt tolerated well no complaints offered. education provided on signs and symptoms of infection at the iv site. pt left ambulatory without assistance
== END 2023-12-21 23:59 | disposition home or self-care (01) ==
LOC: INF 00:18
PROVIDERS: PCP Nurse Practitioner Family; Visit Provider Podiatrist
DX: M86.9 Osteomyelitis, unspecified (principal)
CPT/HCPCS: 36415; 80053; 85027; 85652; 96365; 86140; J0696

== ENCOUNTER 2023-12-24 10:03 | Outpatient (CLI) | payer BC, SELFPAY ==
--- NOTE | 2023-12-24 09:55 | DI.RAD_ITS ---
Exam(s) XR TOE RT GREAT EXAM: XR TOE RT GREAT CLINICAL HISTORY: ? OM hallux, chronic ulcer rt foot, m86.9,l97.519. TECHNIQUE: 2D digital imaging was performed of the right great toe. Three images were obtained. AP , oblique and lateral views were obtained. COMPARISON: CR XR TOE RT GREAT from 08/22/2023 CR XR FOOT RT COMPLETE from 11/11/2023 FINDINGS: BONES: There is fragmentation of the head of the proximal phalanx of the great toe. There also appea rs to be cortical disruption of the medial aspect of the base of the distal phalanx of the great toe. Periarticular osteopenia is present. There is dorsal displacement of the fracture of the head of t he proximal phalanx of the great toe, best appreciated on the lateral view. JOINTS: There is joint space narrowing seen at the 1st MTP joint. SOFT TISSUE: There is soft tissue swelling of the great toe. No soft tissue gas is seen. Atheroscle rotic calcification is present. IMPRESSION: Finding seen at the 1st metatarsal phalangeal joint with periarticular osteopenia, fractures involvin g the head of the proximal phalanx and base of the distal phalanx, dorsal displacement of the distal fracture of the head of the proximal phalanx and soft tissue swelling. Differential considerations i nclude findings related to trauma. Inflammatory or infectious arthrosis should also be considered. Osteomyelitis cannot be excluded. Please correlate with patient's clinical history. Unexpected findings DATA REPOSITORY: RADIATION DOSE DELIVERED:
== END 2023-12-24 10:23 ==
LOC: DI 10:04
PROVIDERS: PCP Nurse Practitioner Family; Visit Provider Podiatrist
DX: M86.171 Other acute osteomyelitis, right ankle and foot
CPT/HCPCS: 73660

== ENCOUNTER 2024-01-08 02:51 | Outpatient (RCR) | payer BC, SELFPAY ==
[2023-12-21] MEDS: cefTRIAXone 2 GM/50 ML BAG IVPB (14:00)
[2023-12-22] MEDS: cefTRIAXone 2 GM/50 ML BAG IVPB (14:15)
[2023-12-22] MEDS: Normal Saline Flush 10 ML SYR IVP (14:16)
[2023-12-23] MEDS: cefTRIAXone 2 GM/50 ML BAG IVPB (13:45)
[2023-12-23] MEDS: Normal Saline Flush 10 ML SYR IVP (13:51)
[2023-12-24] MEDS: cefTRIAXone 2 GM/50 ML BAG IVPB (13:40)
[2023-12-24] MEDS: Normal Saline Flush 10 ML SYR IVP (13:41)
[2023-12-25] MEDS: Normal Saline Flush 10 ML SYR IVP (14:08)
[2023-12-25] MEDS: cefTRIAXone 2 GM/50 ML BAG IVPB (14:08)
[2023-12-26] MEDS: cefTRIAXone 2 GM/50 ML BAG IVPB (14:05)
[2023-12-26] MEDS: Normal Saline Flush 10 ML SYR IVP (14:05)
[2023-12-26 14:24] LABS: HCT 41.8 % (40.0-50.0); HGB 14.3 g/dL (13.5-17.5); MCH 29.4 pg (27.0-33.0); MCHC 34.2 % (32.0-36.0); MCV 86 fL (80-95); MPV 8.7 fL (8.0-11.0); Platelet Count 214 10^3/uL (130-400); RBC 4.87 10^6/uL (4.36-5.78); RDW-SD 37.9 fL; WBC 6.74 10^3/uL (4.4-10.8)
[2023-12-26 14:26] LABS: ESR 19 mm/hr (0-20)
[2023-12-26 14:40] LABS: ALT 34 U/L (16-63); AST 21 U/L (15-37); Albumin 3.9 g/dL (3.4-5.0); Alkaline Phosphatase 59 U/L (46-116); Anion Gap 8.5 mmol/L (3-11); BUN 23 mg/dL (7-18); Bilirubin, Total 0.33 mg/dL (0.2-1.0); CO2 25.5 mmol/L (21.0-32.0); Calcium 9.8 mg/dL (8.5-10.1); Chloride 98 mmol/L (98-107); Estimated GFR 86.16 (mL/min/1.73m2); Glucose 134 mg/dL (74-106); Potassium 3.8 mmol/L (3.5-5.1); Sodium 132 mmol/L (136-145); Total Protein 7.9 g/dL (6.4-8.2)
[2023-12-26 14:42] LABS: C-Reactive Protein < 0.50 mg/dL (<or=0.5)
[2023-12-27] MEDS: cefTRIAXone 2 GM/50 ML BAG IVPB (13:45)
[2023-12-27] MEDS: Normal Saline Flush 10 ML SYR IVP (13:45)
[2023-12-28] MEDS: cefTRIAXone 2 GM/50 ML BAG IVPB (13:38)
[2023-12-28] MEDS: Normal Saline Flush 10 ML SYR IVP (13:43)
[2023-12-29] MEDS: cefTRIAXone 2 GM/50 ML BAG IVPB (14:11)
[2023-12-29] MEDS: Normal Saline Flush 10 ML SYR IVP (14:11)
[2023-12-30] MEDS: cefTRIAXone 2 GM/50 ML BAG IVPB (13:12)
[2023-12-30] MEDS: Normal Saline Flush 10 ML SYR IVP (13:16)
[2023-12-31] MEDS: cefTRIAXone 2 GM/50 ML BAG IVPB (13:30)
[2023-12-31] MEDS: Normal Saline Flush 10 ML SYR IVP (13:31)
[2024-01-01] MEDS: cefTRIAXone 2 GM/50 ML BAG IVPB (13:25)
[2024-01-01] MEDS: Normal Saline Flush 10 ML SYR IVP (13:30)
[2024-01-02] MEDS: cefTRIAXone 2 GM/50 ML BAG IVPB (13:32)
[2024-01-02] MEDS: Normal Saline Flush 10 ML SYR IVP (13:38)
[2024-01-02 14:08] LABS: HGB 14.8 g/dL (13.5-17.5); MCH 29.5 pg (27.0-33.0); MCHC 34.4 % (32.0-36.0); MCV 86 fL (80-95); MPV 8.9 fL (8.0-11.0); Platelet Count 228 10^3/uL (130-400); RBC 5.02 10^6/uL (4.36-5.78); RDW 12.2 % (11.8-14.1); RDW-SD 38.1 fL; WBC 6.22 10^3/uL (4.4-10.8)
[2024-01-02 14:11] LABS: ESR 20 mm/hr (0-20)
[2024-01-02 14:31] LABS: ALT 34 U/L (16-63); AST 18 U/L (15-37); Albumin 4.2 g/dL (3.4-5.0); Alkaline Phosphatase 64 U/L (46-116); Anion Gap 9.9 mmol/L (3-11); BUN 17 mg/dL (7-18); Bilirubin, Total 0.52 mg/dL (0.2-1.0); C-Reactive Protein < 0.50 mg/dL (<or=0.5); CO2 26.1 mmol/L (21.0-32.0); Calcium 10.6 mg/dL (8.5-10.1); Chloride 97 mmol/L (98-107); Estimated GFR 86.16 (mL/min/1.73m2); Glucose 145 mg/dL (74-106); Potassium 3.9 mmol/L (3.5-5.1); Sodium 133 mmol/L (136-145); Total Protein 8.4 g/dL (6.4-8.2)
[2024-01-03] MEDS: cefTRIAXone 2 GM/50 ML BAG IVPB (12:47)
[2024-01-04] MEDS: cefTRIAXone 2 GM/50 ML BAG IVPB (12:45)
[2024-01-04] MEDS: Normal Saline Flush 10 ML SYR IVP (12:45)
[2024-01-05] MEDS: cefTRIAXone 2 GM/50 ML BAG IVPB (12:34)
[2024-01-05] MEDS: Normal Saline Flush 10 ML SYR IVP (12:34)
[2024-01-06] MEDS: cefTRIAXone 2 GM/50 ML BAG IVPB (11:34)
[2024-01-07] MEDS: cefTRIAXone 2 GM/50 ML BAG IVPB (11:40)
[2024-01-07] MEDS: Normal Saline Flush 10 ML SYR IVP (12:16)
[2024-01-08] MEDS: cefTRIAXone 2 GM/50 ML BAG IVPB (12:28)
[2024-01-08] MEDS: Normal Saline Flush 10 ML SYR IVP (12:29)
== END 2024-01-19 23:59 | disposition home or self-care (01) ==
LOC: INF 02:51
PROVIDERS: PCP Nurse Practitioner Family; Visit Provider Podiatrist
DX: M86.171 Other acute osteomyelitis, right ankle and foot (principal); L03.031 Cellulitis of right toe
CPT/HCPCS: 36415; 80053; 85027; 85652; 96365; 86140; J0696

== ENCOUNTER 2024-01-16 02:47 | Outpatient (CLI) | payer BC, SELFPAY ==
[2024-01-16 14:53] LABS: HCT 40.8 % (40.0-50.0); HGB 13.9 g/dL (13.5-17.5); MCH 29.1 pg (27.0-33.0); MCHC 34.1 % (32.0-36.0); MCV 86 fL (80-95); MPV 8.5 fL (8.0-11.0); Platelet Count 236 10^3/uL (130-400); RBC 4.77 10^6/uL (4.36-5.78); RDW 12.4 % (11.8-14.1); RDW-SD 38.4 fL; WBC 6.83 10^3/uL (4.4-10.8)
[2024-01-16 16:14] LABS: ALT 27 U/L (16-63); AST 23 U/L (15-37); Albumin 4.2 g/dL (3.4-5.0); Alkaline Phosphatase 62 U/L (46-116); Anion Gap 8.8 mmol/L (3-11); BUN 16 mg/dL (7-18); Bilirubin, Total 0.47 mg/dL (0.2-1.0); CO2 26.2 mmol/L (21.0-32.0); CREATININE 0.9 mg/dL (0.70-1.30); Calcium 9.6 mg/dL (8.5-10.1); Chloride 96 mmol/L (98-107); Estimated GFR 97.78 (mL/min/1.73m2); Glucose 172 mg/dL (74-106); Potassium 3.9 mmol/L (3.5-5.1); Sodium 131 mmol/L (136-145); Total Protein 7.8 g/dL (6.4-8.2)
[2024-01-16 16:16] LABS: C-Reactive Protein < 0.50 mg/dL (<or=0.5)
== END 2024-01-16 02:48 | disposition home or self-care (01) ==
LOC: LBO 02:47
PROVIDERS: PCP Nurse Practitioner Family; Visit Provider Internal Medicine Infectious Disease
DX: M86.9 Osteomyelitis, unspecified (principal)
CPT/HCPCS: 36415; 80053; 85027; 85025; 86140

== ENCOUNTER 2024-05-17 02:49 | Outpatient (CLI) | payer BC, SELFPAY ==
[2024-05-17 09:09] LABS: Calculated LDL 138 mg/dL (<100); Cholesterol 218 mg/dL (<200); HDL Cholesterol 65 mg/dL (40-60); Triglyceride 79 mg/dL (<150)
== END 2024-05-17 02:50 | disposition home or self-care (01) ==
LOC: LBO 02:50
PROVIDERS: Absent Provider Nurse Practitioner Family; PCP Nurse Practitioner Family; Referring Provider Nurse Practitioner Family; Visit Provider Nurse Practitioner Family
DX: E11.65 Type 2 diabetes mellitus with hyperglycemia (principal)
CPT/HCPCS: 36415; 80061

== ENCOUNTER 2024-11-01 03:12 | Outpatient (CLI) | payer BC, SELFPAY ==
[2024-11-01 09:30] LABS: ALT 35 U/L (16-63); AST 20 U/L (15-37); Calculated LDL 68 mg/dL (<100); Cholesterol 143 mg/dL (<200); HDL Cholesterol 56 mg/dL (>or=40); Triglyceride 96 mg/dL (<150)
[2024-11-01 09:53] LABS: Creatine Kinase 100 U/L (39-308)
== END 2024-11-01 03:13 | disposition home or self-care (01) ==
LOC: LBO 03:12
PROVIDERS: Absent Provider Nurse Practitioner Family; PCP Nurse Practitioner Family; Referring Provider Nurse Practitioner Family; Visit Provider Nurse Practitioner Family
DX: E78.5 Hyperlipidemia, unspecified (principal)
CPT/HCPCS: 36415; 80061; 82550; 84450; 84460

== ENCOUNTER 2025-01-12 04:03 | Outpatient (CLI) | payer BC, SELFPAY ==
[2025-01-12 10:23] LABS: Anion Gap 11.3 mmol/L (3-11); BUN 12 mg/dL (7-18); CO2 25.7 mmol/L (21.0-32.0); Calcium 9.4 mg/dL (8.5-10.1); Chloride 100 mmol/L (98-107); Estimated GFR 104.83 (mL/min/1.73m2); Glucose 172 mg/dL (74-106); Potassium 4.4 mmol/L (3.5-5.1); Sodium 137 mmol/L (136-145)
== END 2025-01-12 04:04 | disposition home or self-care (01) ==
LOC: LBO 04:03
PROVIDERS: PCP Nurse Practitioner Family; Referring Provider Nurse Practitioner Family; Visit Provider Nurse Practitioner Family
DX: I10 Essential (primary) hypertension (principal)
CPT/HCPCS: 36415; 80048